=== PATIENT | male | born 1985 | race Caucasian/White ===

== ENCOUNTER 2025-06-29 10:58 | Emergency (ER) | payer BC, SELFPAY ==
[2025-06-29 11:03] VITALS: BP 153/114; PULSE 96; TEMP 37.1; O2SAT 98; BMI 43.0
--- OUTSIDE RECORDS SUMMARY | 2025-06-29 11:07 | XMS_ITS | Clinical Summary ---
Author Organization [employer] Sys tem Address [id number] [address] [place] [address] Care Team Providers Care Gse Mechanic Name Role Phone No Pcp, No Pcp Primary Care Provider Unavailabl e Allergies No known active allergies Medications No known medications Active Problems No known active problems Family History Relation Name Status Comments Father Alive Mother Alive Social History Tobacco Use Types Packs/Day Years Used Date Smoking Tobacco: Every Day Cigarettes 1.5 21 Smokeless Tobacco: Never Alcohol Use Standard Drinks/Week Comments Yes 0 (1 standard drink = 0.6 oz pur e alcohol) once every 3 months Childcare Answer Date Recorded Childcare Unknown 05/11/2019 Employment Answer Date Recorded Employment Unknown 05/11/2019 Purpose - Life Answer Date Recorded Purpose and direction in life Unknown Sex and Gender Information Value Date Recorded Sex Assigned at Not on file Legal Sex Male 11:28 AM EDT Gender Identity Not on file Sexual Orientation Not on file Last Filed Vital Signs Vital Sign Reading Time Taken Comments Blood Pressure 110/70 03/31/2022 2:35 PM EDT Pulse 105 12/07/2019 6:19 PM EST Temperature 36.4 C (97.5 F) 03/31/2022 2:35 PM EDT Respiratory Rate 17 12/07/2019 6:19 PM EST Oxygen Saturation 98% 12/07/2019 6:19 PM EST Inhaled Oxygen Concentration - - Weight 129.3 kg (285 lb) 03/31/2022 2:35 PM EDT Height 175.3 cm (5' 9 ) 03/31/2022 2:35 PM EDT Body Mass Index 42.09 03/31/2022 2:35 PM EDT Plan of Treatment Health Maintenance Due Date Last Done Comments Depression Screening 1997 Tobacco Screening 1997 Adult BMI Screening 2003 DTaP,Tdap and Td Vaccines (1 - Tdap) 2004 Influenza Vaccine 07/31/2025 Medical Devices Not on file Care Teams Gse Mechanic Relationship Specialty Start Date End Date No Pcp, [place] [id number] PCP - General Family Medicine 06/30/17
--- NOTE | 2025-06-29 11:10 | XR_ITS ---
[facility] [place] [id number] Patient Name: CASSI NEAL MRN: [id number] date: 1985 Sex: M Assigned Patient Location: ED.MAIN Current Patient Location: ED.MAIN Accession/Order Number: [id number] Exam Date: 06/29/2025 11:45 Report Date: 06/29/2025 11:46 At the request of: PATTIE CARRILLO MD Procedure: XR knee RT 2V RIGHT KNEE - 2 views CLINICAL HISTORY: Anterior right knee pain with lump. COMPARISON: Right knee 08/20/2021 FINDINGS: Minimal knee joint effusion. Mild soft tissue swelling in the region of the lump. Minimal degenerative change without acute bony process. XR/XR knee RT 2V IMPRESSION: MINIMAL DEGENERATIVE CHANGE WITHOUT ACUTE BONY PROCESS. MILD SOFT TISSUE SWELLING IN THE REGION OF THE LUMP.. Impression dictated by: Herminio Harris Jr., D.OHenrique 06/29/2025 11:46 AM Dictation Location: [place] [address] Electronically authenticated by: [id number] Y Date: 06/29/2025 11:46
--- NOTE | 2025-06-29 11:11 | ED.GENADUL1 ---
HPI HPI - General Adult General Stated complaint: LOWER EXTREMITY PAIN Time Seen by Provider: 06/29/25 11:06 Source: patient Mode of arrival: walk-in Limitations: no limitations History of Present Illness HPI narrative: I had the patient a 39-year-old male is coming to the ER with a right knee pain that started almost 2 days ago. No history of fall or injury but he mentioned that he leaned on his knee while working all the time He still able to walk but with pain Related Data Previous Rx's ?Medication ?Instructions ?Recorded diclofenac sodium 75 mg 75 mg PO BID PRN pain #20 tabs 06/29/25 tablet,delayed release Allergies Allergy/AdvReac Type Severity Reaction Status Date / Time No Known Drug Allergies Allergy Verified 06/29/25 11:02 Opioid HPI Opioid Management Most Recent Opioid Data: Last Pain Scale 8 Today, 11:22 Last JAN Pain Assessment Today, 11:22 Review of Systems ROS Status of ROS 10 or more systems reviewed and unremarkable except as noted in history and below PFSH PFSH Social History Little interest or pleasure in doing things: not at all Feeling down, depressed, or hopeless: not at all Exam Narrative Exam Narrative: Nurses notes and vital signs reviewed and patient is not hypoxic. General: Well-appearing and in no apparent distress. Skin: Warm, dry, no pallor noted. No rash. Right lower extremity exam: Patient have tenderness upon palpation of the anterior of the patella but there is no significant effusion there is no redness hotness or any signs of infection But the patient have tenderness with flexion mostly at 45 degrees there drawer sign is negative anterior and posterior mild swelling at the ant tibial, no fluctuation The patient does not have any vascular injury detected and full range of movement preserved Constitutional Vital Signs, click to edit/add: Last Vital Signs Temp 98.7 F 06/29/25 11:03 Pulse 96 H 06/29/25 11:03 Resp 18 06/29/25 11:03 BP 153/114 H 06/29/25 11:03 Pulse Ox 98 06/29/25 11:03 O2 Del Method Room Air 06/29/25 11:03 Course Vital Signs Vital signs: Vital Signs Temperature 98.7 F 06/29/25 11:03 Pulse Rate 96 H 06/29/25 11:03 Respiratory Rate 18 06/29/25 11:03 Blood Pressure 153/114 H 06/29/25 11:03 Pulse Oximetry 98 06/29/25 11:03 Oxygen Delivery Method Room Air 06/29/25 11:03 Temperature 98.7 F 06/29/25 11:03 Pulse Rate 96 H 06/29/25 11:03 Respiratory Rate 18 06/29/25 11:03 Blood Pressure 153/114 H 06/29/25 11:03 Pulse Oximetry 98 06/29/25 11:03 Oxygen Delivery Method Room Air 06/29/25 11:03 Medical Decision Making MDM Narrative Medical decision making narrative: X-ray of the patient right knee showed no acute pathology regarding the bony structures the patient does have some edema Right now the patient presentation could be secondary to bursitis he was started with the Toradol and prednisone in the ER discharged home with Voltaren and knee immobilizer The patient instructed to avoid leaning on his knee for the next few days And always have protection whenever he is not leaning on his knee while walking The patient will follow-up with his primary care doctor within a week The patient is to follow up with primary care physician in next 2-3 days or to return to the emergency department should any of the signs or symptoms worsen or new symptoms develop. The patient agrees with the following Diagnosis and Treatment plan and the patient will be discharged home. Discharge Plan Discharge Clinical Impression: Bursitis, knee Patient Disposition: Home, Self-Care Time of Disposition Decision: 11:57 Condition: Good Prescriptions / Home Meds: New diclofenac sodium 75 mg tablet,delayed release (DR/EC) 75 mg PO BID PRN (Reason: pain) Qty: 20 0RF Print Language: Cambodian Instructions: Knee Bursitis (ED) Referrals: Physician,Non-Staff, MD [Primary Care Provider] - 1 week Discharge Date/Time: 06/29/25 12:11
[2025-06-29] MEDS: KETOROLAC TROMETHAMINE 60 MG/2 ML VIAL IM (11:22)
[2025-06-29] MEDS: PREDNISONE 20 MG TABLET 40 MG PO (11:22)
--- NOTE | 2025-06-29 11:55 | PC.NURSE ---
knee immobilizer applied to left knee, pms intact pre and post splint application
== END 2025-06-29 12:11 | disposition home or self-care (01) ==
PROVIDERS: Emergency Provider Emergency Medicine
DX: M70.51 Other bursitis of knee, right knee (principal)
CPT/HCPCS: 73560; 96372; 99284; J1885; J7512